=== PATIENT | female | born 1995 | race African-American/Black ===

== ENCOUNTER 2017-05-10 02:16 | Emergency (ER) | payer OTHER ==
[2017-05-10] MEDS ORDERED: ONDANSETRON ODT 4 MG TAB.RAPDIS. ×3 (02:53)
[2017-05-10] MEDS: ONDANSETRON ODT 4 MG TAB.RAPDIS. PO ×3 (02:59)
[2017-05-10] MEDS: IV NORMAL SALINE 1000ML BAG 1,000 ML IV ×6 (02:59→06:22)
[2017-05-10 03:16] LABS: AGAP ISTAT 16 mmol/L (6-14); BUN ISTAT 13 mg/dL (8-26); CHLORIDE ISTAT 98 mmol/L (98-110); CREATININE ISTAT 0.8 mg/dL (0.5-1.4); GLUCOSE ISTAT 139 mg/dL (70-99); HEMATOCRIT ISTAT 31 % (36-40); HEMOGLOBIN ISTAT 10.5 g/dL (12-15); ION CA ISTAT 1.04 mmol/L (1.13-1.32); POTASSIUM ISTAT 3.9 mmol/L (3.5-5.0); SODIUM ISTAT 135 mmol/L (135-145); TOT CO2 ISTAT 26 mmol/L (23-32)
[2017-05-10] MEDS ORDERED: ONDANSETRON PF 4 MG/2 ML VIAL. IV ×3 (03:30)
[2017-05-10 04:07] LABS: URINE HCG POC HCG POSITIVE (Negative)
== END 2017-05-10 07:30 | disposition home or self-care (01) ==
LOC: ER 02:16
DX: O46.91 Antepartum hemorrhage, unspecified, first trimester (principal); Z33.1 Pregnant state, incidental (principal); K52.9 Noninfective gastroenteritis and colitis, unspecified; R55 Syncope and collapse; E86.0 Dehydration; R00.0 Tachycardia, unspecified; Z3A.00 Weeks of gestation of pregnancy not specified
CPT/HCPCS: 36415; 76801; 76817; 80047; 81025; 84702; 85014; 85018; 96360; 96361; 99285-25; J7030; Q0162

== ENCOUNTER 2018-02-07 20:54 | Emergency (ER) | payer SELFPAY ==
[~2018-02-07] VITALS: Ht 160 cm; Wt 64.9 kg
[~2018-02-07 20:54] MED LIST: ONDA4TAB10 SL
[2018-02-07 20:55] VITALS: BP 118/57
--- NOTE | 2018-02-07 21:11 | PHYS DOC ---
Past Medical History Past Medical History: No Pertinent History Past Surgical History: No Surgical History Alcohol Use: None Drug Use: None Adult General HPI HPI Patient is a 22 year old female who is 6 months 2 para 1 who presents today with cough, nasal congestion for 2-3 days. Patient denies any fever. She states she feels nasally congested the sometimes she can't breathe. Patient denies any abdominal pain. Denies any vaginal bleeding. Review of Systems Review of Systems Constitutional: Denies fever or chills [] Eyes: Denies change in visual acuity, redness, or eye pain [] HENT: Reports nasal congestion, denies sore throat [] Respiratory: Reports cough and shortness of breath [] Cardiovascular: No additional information not addressed in HPI [] GI: Reports . Denies abdominal pain, nausea, vomiting, bloody stools or diarrhea [] : Denies dysuria or hematuria [] Musculoskeletal: Denies back pain or joint pain [] Integument: Denies rash or skin lesions [] Neurologic: Denies headache, focal weakness or sensory changes [] All other systems were reviewed and found to be within normal limits, except as documented in this note. Allergies Allergies Allergies Coded Allergies Type Severity Reaction Last Updated Verified No Known Drug Allergies 10/16/14 No Physical Exam Physical Exam Constitutional: Well developed, well nourished, no acute distress, non-toxic appearance. [] HENT: Normocephalic, atraumatic, bilateral external ears normal, oropharynx moist, no oral exudates, nose normal. [] Eyes: PERRLA, EOMI, conjunctiva normal, no discharge. [] Neck: Normal range of motion, no tenderness, supple, no stridor. [] Cardiovascular:Heart rate regular rhythm, no murmur [] Lungs & Thorax: Bilateral breath sounds clear to auscultation [] Abdomen: Gravid abdomen. Bowel sounds normal, soft, no tenderness, no masses, no pulsatile masses. [] Skin: Warm, dry, no erythema, no rash. [] Back: No tenderness, no CVA tenderness. [] Extremities: No tenderness, no cyanosis, no clubbing, ROM intact, no edema. [] Neurologic: Alert and oriented X 3, normal motor function, normal sensory function, no focal deficits noted. [] Psychologic: Affect normal, judgement normal, mood normal. [] Current Patient Data Vital Signs Vital Signs Date Time Temp Pulse Resp B/P (MAP) Pulse Ox O2 Delivery O2 Flow Rate FiO2 02/07/18 20:55 97.9 96 18 118/57 (77) 100 Room Air 97.9 EKG EKG [] Radiology/Procedures Radiology/Procedures [] Course & Med Decision Making Course & Med Decision Making Pertinent Labs and Imaging studies reviewed. (See chart for details) This is a 22-year-old female patient presenting to the ED today with symptoms consistent of an upper respiratory infection including cough and nasal congestion. She is currently 6 months 2 para 1. She states sometimes she feels nasally congested and not able to breathe. Her O2 sats 100% on room in the ED. She is in no distress. Her lungs are clear. She is nasally congested. Informed patient this a viral illness it'll run its own course. Gave her prescription for breathing treatments. Recommended humidified air. Follow- up with primary care doctor or [facility] in the course of this week or next week. Instructed to return to the ED at any point symptoms worsen. heart tones will be checked prior to discharge. Staff Physician Addendum: I was working in the ER during the course of this patient's visit. I was available for consultation as needed, but I was not directly involved in the care of this patient. Dragon Disclaimer Dragon Disclaimer This electronic medical record was generated, in whole or in part, using a voice recognition dictation system. Departure Departure Impression: Primary Impression: Upper respiratory infection Additional Impressions: Cough Disposition: 01 HOME, SELF-CARE Condition: STABLE Referrals: YAHIR VERGARA Jr, MD (PCP) follow up this week or next week Patient Instructions: ABCs of , Cough, Adult, [id number], Upper Respiratory Infection, Adult, [id number] Additional Instructions: You were evaluated in the emergency room with symptoms consistent of a viral upper respiratory infection. Push fluids, maintain good hand hygiene. Rest. Get a humidifier and place in the room. Use breathing treatments as needed. Follow- up with your own doctor in the course of this week or next week, come back to the ED at any point symptoms worsen. Scripts Albuterol Sulfate (VENTOLIN HFA INHALER) 18 Gm Hfa.aer.ad 2 PUFF INH Q4HRS for FOR ASTHMA, #1 INHALER 0 Refills Prov: ODALYS HYATT APRN 02/07/18 Problem Qualifiers Primary Impression: Upper respiratory infection URI type: unspecified URI Qualified Codes: J06.9 - Acute upper respiratory infection, unspecified Additional Impressions: Weeks of gestation: 20 weeks Qualified Codes: Z3A.20 - 20 weeks gestation of ODALYS HYATT APRN Feb 07, 2018 21:11 YASH SANDHU MD Feb 08, 2018 01:16
[2018-02-07] MEDS ORDERED: VENTOLIN HFA18 GM INH (21:16)
== END 2018-02-07 22:17 | disposition home or self-care (01) ==
LOC: ER 20:54
DX: O99.512 Diseases of the respiratory system complicating pregnancy, second trimester (principal); J06.9 Acute upper respiratory infection, unspecified; Z3A.24 24 weeks gestation of pregnancy
CPT/HCPCS: 99283

== ENCOUNTER → 2019-09-14 | Outpatient (CLI) | payer MEDICAID ==
[~2019-09-14] MED LIST changes: +VENTOLIN HFA18 GM INH
--- NOTE | 2019-09-14 17:21 | RAD ---
Exam: Ultrasound OB greater than 14 weeks Indication: Technique: Real-time grayscale and color Doppler images of the pelvis were obtained by the department heating element builder. Comparisons: None FINDINGS: Single live intrauterine gestation with heart rate measured at 150 bpm. Fetus is transverse in position. measurements as follows: BPD: 6.4 cm corresponding to 25 weeks 5 days Head circumference: 23.6 cm corresponding to 25 weeks 4 days Abdominal circumference: 20.9 cm corresponding to 25 weeks 4 days Femur length: 4.5 cm corresponding to 25 weeks 0 days Estimated weight 797 g. SALOME is normal. Placenta is anterior and appears unremarkable. Visualized structures are within normal limits. IMPRESSION: Single live intrauterine gestation measuring 25 weeks 3 days by current ultrasound. Correlate with LMP or any prior dating ultrasound. Electronically signed by: Joshua Villela MD (09/14/2019 5:18 PM) [id number]
== END | disposition home or self-care (01) ==
LOC: US 15:28
PROVIDERS: ATTEND Obstetrics & Gynecology
DX: O26.842 Uterine size-date discrepancy, second trimester (principal); Z32.01 Encounter for pregnancy test, result positive; Z3A.25 25 weeks gestation of pregnancy
CPT/HCPCS: 76805